=== PATIENT | female | born 1985 | race American Indian/Alaskan Native ===

== ENCOUNTER 2017-10-27 10:12 | Emergency (ER) | payer OTHER ==
[2017-10-27 10:28] VITALS: BP 105/71; PULSE 59; RESP 18; TEMP 98.7; O2SAT 100
--- NOTE | 2017-10-27 10:31 | ED PDOC ---
Arrival/HPI <Luba Sorto - Last Filed: 10/27/17 11:56> - General Historian: Patient - History of Present Illness Time/Duration: 24 hours Symptom Onset: Sudden Symptom Course: Unchanged Quality: Stabbing Severity Level: 10 Activities at Onset: Light <Vinh Yanes - Last Filed: 10/27/17 12:28> - General Chief Complaint: Back Pain - History of Present Illness Narrative History of Present Illness (Text): Patient is a 32 year old male who presents to the emergency department for evaluation and treatment of right sided upper back pain which began yesterday evening after reaching for an object. Admits to hearing a crack with sudden onset of sharp pain in the upper back region. States the pain was rated a 10/10 and has remained a 10/10 despite applying Bengay. States the pain radiates to the right mid back. Denies fever, chills, chest pain, shortness of breath, abdominal pain, nausea, vomiting, diarrhea, constipation, and urinary symptoms. (JoaquínVinh) Family/Social History Family/Social History: Unknown Family HX Hx Alcohol Use: No Hx Substance Use: No Hx Substance Use Treatment: No <Vinh Yanes - Last Filed: 10/27/17 12:28> Allergies/Home Meds <Luba Sorto - Last Filed: 10/27/17 11:56> <Vinh Yanes - Last Filed: 10/27/17 12:28> Allergies/Adverse Reactions: Allergies No Known Allergies Allergy (Verified 10/27/17 10:21) Review of Systems - Review of Systems Constitutional: Normal Eyes: Normal ENT: Normal Respiratory: Normal Cardiovascular: Normal Gastrointestinal: Normal Genitourinary Female: Normal Musculoskeletal: Back Pain Skin: Normal Neurological: Normal Endocrine: Normal Hemo/Lymphatic: Normal Psychiatric: Normal <Vinh Yanes - Last Filed: 10/27/17 12:28> Physical Exam Temperature: Afebrile Blood Pressure: Normal Pulse: Bradycardic Respiratory Rate: Normal Appearance: Positive for: Well-Appearing, Non-Toxic, Comfortable Pain Distress: None Mental Status: Positive for: Alert and Oriented X 3 - Systems Exam Head: Present: Atraumatic, Normocephalic Pupils: Present: PERRL Extroacular Muscles: Present: EOMI Conjunctiva: Present: Normal Mouth: Present: Moist Mucous Membranes Neck: Present: Normal Range of Motion Respiratory/Chest: Present: Clear to Auscultation, Good Air Exchange. No: Respiratory Distress, Accessory Muscle Use Cardiovascular: Present: Regular Rate and Rhythm, Normal S1, S2. No: Murmurs Abdomen: No: Tenderness, Distention, Peritoneal Signs Back: Present: Normal Inspection, Other (pain with palpation in the region near the right inferior angle of the scapula ). No: Midline Tenderness, Paraspinal Tenderness Upper Extremity: Present: Normal Inspection. No: Cyanosis, Edema Lower Extremity: Present: Normal Inspection. No: Edema Neurological: Present: GCS=15, CN II-XII Intact, Speech Normal Skin: Present: Warm, Dry, Normal Color. No: Rashes Psychiatric: Present: Alert, Oriented x 3, Normal Insight, Normal Concentration <Vinh Yanes - Last Filed: 10/27/17 12:28> Vital Signs Temp Pulse Resp BP Pulse Ox 10/27/17 10:13 98.7 F 59 L 18 105/71 100 Medical Decision Making <Luba Sorto - Last Filed: 10/27/17 11:56> <Vinh Yanes - Last Filed: 10/27/17 12:28> ED Course and Treatment: 10/27/17 11:55 32 year old female presents to the Emergency department for right sided upper back discomfort since yesterday. In agreement with resident note, which includes further HPI details. Patient was seen and evaluated with resident, came up with plan and treatment together. (Luba Sorto) Assessment and Plan: Patient is a 32 year old male who presents to the emergency department for evaluation and treatment of right sided upper back pain which began yesterday evening after reaching for an object. Back Pain 10/27/17 10:57 - Toradol 60mg IM - Chest X-ray - Right shoulder xray 10/27/17 12:24 - back pain significantly improved 6/10 - ROM of right shoulder improved - patient ok for dc to home (Vinh Yanes) - RAD Interpretation Narrative RAD Interpretations (Text): Chest X-ray- no acute cardiopulmonary findings Shoulder X-ray- no visible fracture or dislocation 10/27/17 12:28 (Vinh Yanes) Radiology Orders: 10/27/17 10:29 CHEST TWO VIEWS (PA/LAT) [RAD] Stat SHOULDER RIGHT [RAD] Stat - Medication Orders Current Medication Orders: Discontinued Medications Ketorolac Tromethamine (Toradol) 60 mg IM STAT STA Stop: 10/27/17 10:30 Last Admin: 10/27/17 10:48 Dose: 60 mg MAR Pain Assessment Document 10/27/17 10:48 OCS (Rec: 10/27/17 10:49 [id number] Pain Reassessment Is this a pain reassessment? No Sleep Is patient sleeping during reassessment? No Presence of Pain Presence of Pain Yes Pain Scale Used Pain Scale Used Numeric Location Upper or Lower Upper Pain Location Body Site Back Description Description Constant Intensity of Pain at present 10 Aggravating Factors ADL's IM Administration Charges Document 10/27/17 10:48 OCS (Rec: 10/27/17 10:49 OCS [id number]) Injection Site MAR Injection Site Left Deltoid Charges for Administration # of IM Administrations 1 - PA / TRANSFORMER MAKER / Resident Statement MD/DO has reviewed & agrees with the documentation as recorded. MD/DO has examined the patient and agrees with the treatment plan. - Scribe Statement The provider has reviewed the documentation as recorded by the Scribe <Luba Sorto - Last Filed: 10/27/17 11:56> <Vinh Yanes - Last Filed: 10/27/17 12:28> - Scribe Statement Jenny Esparza. All medical record entries made by the Scribe were at my direction and personally dictated by me. I have reviewed the chart and agree that the record accurately reflects my personal performance of the history, physical exam, medical decision making, and the department course for this patient. I have also personally directed, reviewed, and agree with the discharge instructions and disposition. (Luba Sorto) Disposition/Present on Arrival <Luba Sorto - Last Filed: 10/27/17 11:56> - Present on Arrival Any Indicators Present on Arrival: No History of DVT/PE: No History of Uncontrolled Diabetes: No Urinary Catheter: No History of Decub. Ulcer: No - Disposition Have Diagnosis and Disposition been Completed?: Yes Disposition Time: 12:25 <Vinh Yanes - Last Filed: 10/27/17 12:28> - Disposition Diagnosis: Back pain Disposition: HOME/ ROUTINE Patient Problems: Current Active Problems Problem Status Onset Back pain Acute Condition: GOOD Discharge Instructions (ExitCare): Upper Back Pain (DC) Additional Instructions: ELYSIA SPRAGUE, thank you for letting us take care of you today. Your provider was Luba Sorto MD and you were treated for UPPER BACK/SHARP PAIN. The emergency medical care you received today was directed at your acute symptoms. If you were prescribed any medication, please fill it and take as directed. It may take several days for your symptoms to resolve. Return to the Emergency Department if your symptoms worsen, do not improve, or if you have any other problems. Please contact your doctor or call one of the physicians/clinics you have been referred to that are listed on the Patient Visit Information form that is included in your discharge packet. Bring any paperwork you were given at discharge with you along with any medications you are taking to your follow up visit. Our treatment cannot replace ongoing medical care by a primary care provider outside of the emergency department. Thank you for allowing the [facility] team to be part of your care today. If you had an X-Ray or CT scan: A Radiologist will review the ED reading if any change in treatment is needed we will contact you. If you had a blood, urine, or wound culture: It will take several days for the results, if any change in treatment is needed we will contact you. If you had an STI test: It will take 48 hours for the results. Please call after 1 week if you have not heard back. Chest X-ray- no acute cardiopulmonary findings Shoulder X-ray- no visible fracture or dislocation Prescriptions: Ibuprofen [Motrin Tab] 800 mg PO TID PRN 7 Days tab PRN Reason: Pain, Moderate (4-7) Forms: [employer] (Mauritanian)
--- NOTE | 2017-10-27 13:11 | RAD ---
HISTORY: Upper back pain COMPARISON: No prior. TECHNIQUE: Chest PA and lateral FINDINGS: LUNGS: No active pulmonary disease. PLEURA: No significant pleural effusion identified. No pneumothorax apparent. CARDIOVASCULAR: Normal. OSSEOUS STRUCTURES: No significant abnormalities. VISUALIZED UPPER ABDOMEN: Normal. OTHER FINDINGS: None. IMPRESSION: No active disease.
--- NOTE | 2017-10-27 13:11 | RAD ---
PROCEDURE: Radiographs of the Right Shoulder HISTORY: pain COMPARISON: No prior. FINDINGS: BONES: Normal. No fracture. JOINTS: Normal. Glenohumeral and acromioclavicular joints preserved. No osteoarthritis. SOFT TISSUES: Normal. OTHER FINDINGS: None. IMPRESSION: Normal radiographs of the right shoulder.
== END 2017-10-27 12:53 | disposition home or self-care (01) ==
LOC: ED 10:12
DX: M54.6 Pain in thoracic spine (principal)
CPT/HCPCS: 71046; 73030; 96372; 99282; J1885

== ENCOUNTER 2018-03-26 11:25 | Emergency (ER) | payer OTHER ==
[2018-03-26 11:59] VITALS: RESP 18; BMI 27.3
--- NOTE | 2018-03-26 12:36 | ED PDOC ---
Arrival/HPI - General Chief Complaint: Headache Historian: Patient - History of Present Illness Narrative History of Present Illness (Text): 03/26/18 12:33 32yo female with no pmhx who present with complaint of headache over her right eye since yesterday. She reports intermittent dizziness. Denies photophobia, nausea, vomiting, focal weakness, nasal congestion, fever, chills, neck pain, nuchal ridgity, any other complaint. Past Medical History - Provider Review Nursing Documentation Reviewed: Yes - Psychiatric Hx Substance Use: No - Surgical History Hx Section: Yes - Anesthesia Hx Anesthesia: No Hx Anesthesia Reactions: No Family/Social History - Physician Review Nursing Documentation Reviewed: Yes Family/Social History: Unknown Family HX Smoking Status: Never Smoked Hx Alcohol Use: No Hx Substance Use: No Hx Substance Use Treatment: No Allergies/Home Meds Allergies/Adverse Reactions: Allergies No Known Allergies Allergy (Verified 03/26/18 12:03) Review of Systems - Physician Review All systems were reviewed & negative as marked: Yes - Review of Systems Constitutional: Normal Eyes: Normal ENT: Normal Respiratory: Normal Cardiovascular: Normal Gastrointestinal: Normal Genitourinary Female: Normal Musculoskeletal: Normal Skin: Normal Neurological: Headache, Dizziness. absent: Focal Weakness, Gait Changes, Speech Changes, Facial Droop Endocrine: Normal Hemo/Lymphatic: Normal Psychiatric: Normal Physical Exam Vital Signs Reviewed: Yes Vital Signs Temp Pulse Resp BP Pulse Ox 03/26/18 11:58 98 F 70 18 122/77 98 Temperature: Afebrile Blood Pressure: Normal Pulse: Regular Respiratory Rate: Normal Appearance: Positive for: Well-Appearing, Non-Toxic, Comfortable Pain Distress: None Mental Status: Positive for: Alert and Oriented X 3 - Systems Exam Head: Present: Atraumatic, Normocephalic Pupils: Present: PERRL Extroacular Muscles: Present: EOMI Conjunctiva: Present: Normal Mouth: Present: Moist Mucous Membranes Nose (Internal): Present: Boggy (Right nares), Other (Tenderness over right frontal and maxillary sinus) Neck: Present: Normal Range of Motion. No: Meningeal Signs Respiratory/Chest: Present: Clear to Auscultation, Good Air Exchange. No: Respiratory Distress, Accessory Muscle Use Cardiovascular: Present: Regular Rate and Rhythm, Normal S1, S2. No: Murmurs Abdomen: No: Tenderness, Distention, Peritoneal Signs Back: Present: Normal Inspection Upper Extremity: Present: Normal Inspection. No: Cyanosis, Edema Lower Extremity: Present: Normal Inspection. No: Edema Neurological: Present: GCS=15, CN II-XII Intact, Speech Normal, Motor Func Grossly Intact, Normal Sensory Function, Normal Cerebellar Funct, Norm Deep Tendon Reflexes, Gait Normal, Memory Normal, Normal 2Pt Descrimination Skin: Present: Warm, Dry, Normal Color. No: Rashes Psychiatric: Present: Alert, Oriented x 3, Normal Insight, Normal Concentration Medical Decision Making ED Course and Treatment: 03/26/18 13:52 32yo female presented for right sided headache. she was afebrile and neurologically intact. Her neck was supple and she had no meningeal signs. She had tenderness over her right frontal and maxillary sinuses Head CT Tylenol 650mg and Reglan was ordered On re evaluation she reports improvement of her headache. Head CT - No acute finding Result was DW the pt and she was DC home with Fioricet and Augmentin for sinusitis. - RAD Interpretation Radiology Orders: 03/26/18 12:05 HEAD W/O CONTRAST [CT] Stat - Medication Orders Current Medication Orders: Discontinued Medications Acetaminophen (Tylenol 325mg Tab) 650 mg PO STAT STA Stop: 03/26/18 12:06 Last Admin: 03/26/18 12:17 Dose: 650 mg MAR Pain/Vitals Document 03/26/18 12:17 OCS (Rec: 03/26/18 12:18 [id number] Pain Reassessment Is This A Pain ReAssessment? No Sleep Is patient sleeping during reassessment? No Presence of Pain Presence of Pain Yes Pain Scale Used Protocol: PSCALES Pain Scale Used Numeric Location Pain Location [employer] Aggravating Factors ADL's Metoclopramide HCl (Reglan) 10 mg PO STAT STA Stop: 03/26/18 12:06 Last Admin: 03/26/18 12:18 Dose: 10 mg Disposition/Present on Arrival - Present on Arrival Any Indicators Present on Arrival: No History of DVT/PE: No History of Uncontrolled Diabetes: No Urinary Catheter: No History of Decub. Ulcer: No History Surgical Site Infection Following: None - Disposition Have Diagnosis and Disposition been Completed?: Yes Diagnosis: Headache, Sinusitis Disposition: HOME/ ROUTINE Disposition Time: 13:30 Patient Plan: Discharge Condition: STABLE Discharge Instructions (ExitCare): Sinusitis in Adults, Headache, Adult Additional Instructions: Follow up with your Doctor Return to ED for any new or worsening symptoms Prescriptions: Acetaminophen/Butalbital/Caf [Fioricet] 1 tab PO Q6 #15 tab Amoxicillin/Clavulanate [Augmentin 875 MG-125 MG] 1 tab PO BID #14 tab Referrals: FAMILY PROVIDER,NO [Primary Care Provider] - Follow up with primary Tanya Cloud MD [Medical Doctor] - Follow up with primary Forms: [employer] ([place]), WORK NOTE
--- NOTE | 2018-03-26 13:23 | CT ---
Date of service: 03/26/2018 PROCEDURE: CT HEAD WITHOUT CONTRAST. HISTORY: headache COMPARISON: None available. TECHNIQUE: Axial computed tomography images were obtained through the head/brain without intravenous contrast. Radiation dose: Total exam DLP = 831.68 mGy-cm. This CT exam was performed using one or more of the following dose reduction techniques: Automated exposure control, adjustment of the mA and/or kV according to patient size, and/or use of iterative reconstruction technique. FINDINGS: HEMORRHAGE: No intracranial hemorrhage. BRAIN: No mass effect or edema. No atrophy or chronic microvascular ischemic changes. VENTRICLES: Unremarkable. No hydrocephalus. CALVARIUM: Unremarkable. PARANASAL SINUSES: Unremarkable as visualized. No significant inflammatory changes. MASTOID AIR CELLS: Unremarkable as visualized. No inflammatory changes. OTHER FINDINGS: None. IMPRESSION: No acute intracranial findings
[2018-03-26 14:17] VITALS: BP 130/69; PULSE 75; TEMP 98; O2SAT 99
== END 2018-03-26 13:49 | disposition home or self-care (01) ==
LOC: ED 11:25
DX: J32.9 Chronic sinusitis, unspecified (principal); R51 Headache